=== PATIENT | female | born 1995 | race Caucasian/White ===

== ENCOUNTER → 2020-09-11 | Day surgery (SDC) | payer OTHER ==
[~2020-09-11] MED LIST: ADULT GLYCERIN1 EACH PR; BENADRYL25 MG PO; COLACE100 MG PO; CYCLOBENZAPRINE10 MG PO; DERMOPLAST PAIN56 GM TP; HYDROCODON-ACE1 EAC4 PO; IBUPROFEN800 MG PO; LIDOCAINE-PRIL1 EACH TP; MACROBID 100 M100 MG PO; MIRALAX17 GM PO; PERCOCET 5/325 T1 EA PO
[2020-09-11 10:16] LABS: HEMOGLOBIN 14.7 gm/dl (12.3-15.3); RED BLOOD COUNT 4.95 M/UL (4.00-5.10); WHITE BLOOD COUNT 10.2 K/UL (4.5-11.0)
== END | disposition home or self-care (01) ==
LOC: OR 08:20
PROVIDERS: Obstetrics & Gynecology
DX: Q52.10 Doubling of vagina, unspecified (principal); Z88.0 Allergy status to penicillin; Z82.49 Family history of ischemic heart disease and other diseases of the circulatory system; Z83.3 Family history of diabetes mellitus
CPT/HCPCS: 36415; 84702; 85025; J1100; J1885; J2001; J2250; J2405; J2704; J3010; J7120

== ENCOUNTER 2020-09-18 20:20 | Emergency (ER) | payer OTHER ==
[~2020-09-18 20:20] MED LIST changes: -ADULT GLYCERIN1 EACH PR; -CYCLOBENZAPRINE10 MG PO; -MACROBID 100 M100 MG PO; -MIRALAX17 GM PO; -PERCOCET 5/325 T1 EA PO
[2020-09-18 22:19] LABS: HEMOGLOBIN 14.9 gm/dl (12.3-15.3); WHITE BLOOD COUNT 12.8 K/UL (4.5-11.0)
[2020-09-18 22:32] LABS: BUN/CREATININE RATIO 15 (0-10)
[2020-09-19] MEDS ORDERED: MACROBID 100 M100 MG PO (02:01)
[2020-09-19] MEDS ORDERED: MIRALAX17 GM PO (02:01)
== END 2020-09-19 02:15 | disposition home or self-care (01) ==
LOC: ER1 20:20
PROVIDERS: Physician Assistant
DX: K91.841 Postprocedural hemorrhage of a digestive system organ or structure following other procedure (principal); N39.0 Urinary tract infection, site not specified; K59.00 Constipation, unspecified; B37.9 Candidiasis, unspecified; Z88.0 Allergy status to penicillin
CPT/HCPCS: 74018; 80053; 81001; 85025; 85652; 86140; 87086; 99283

== ENCOUNTER 2020-09-21 18:39 | Emergency (ER) | payer OTHER ==
[~2020-09-21 18:39] MED LIST changes: +MACROBID 100 M100 MG PO; +MIRALAX17 GM PO
[2020-09-21] MEDS ORDERED: CYCLOBENZAPRINE10 MG PO ×2 (19:25→19:56)
[2020-09-21] MEDS ORDERED: PERCOCET 5/325 T1 EA PO ×2 (19:35→19:56)
== END 2020-09-21 20:25 | disposition home or self-care (01) ==
LOC: ER1 18:39
DX: N99.820 Postprocedural hemorrhage of a genitourinary system organ or structure following a genitourinary system procedure (principal); Z88.0 Allergy status to penicillin
CPT/HCPCS: 99283

== ENCOUNTER 2020-09-29 20:56 | Emergency (ER) | payer OTHER ==
[~2020-09-29 20:56] MED LIST changes: +CYCLOBENZAPRINE10 MG PO; +PERCOCET 5/325 T1 EA PO
[2020-09-30 02:27] LABS: HEMOGLOBIN 13.6 gm/dl (12.3-15.3); RED BLOOD COUNT 4.85 M/UL (4.00-5.10); WHITE BLOOD COUNT 8.1 K/UL (4.5-11.0)
[2020-09-30 02:39] LABS: BUN/CREATININE RATIO 13 (0-10)
[2020-09-30] MEDS ORDERED: ADULT GLYCERIN1 EACH PR (04:35)
== END 2020-09-30 04:45 | disposition home or self-care (01) ==
LOC: ER1 20:56
PROVIDERS: Physician Assistant
DX: N39.0 Urinary tract infection, site not specified (principal); K59.00 Constipation, unspecified; Z88.0 Allergy status to penicillin
CPT/HCPCS: 80053; 81001; 83605; 83690; 85025; 87086; 96374; 96375; 99284; J1885; J2405; J7030